=== PATIENT | female | born 1965 | race Caucasian/White ===

== ENCOUNTER → 2021-12-02 | Outpatient (CLI) | payer BC, OTHER ==
[~2021-12-02] MED LIST: AJOVY; CYMBALTA60 MG PO; HYDRALAZINE HCL50 MG PO; LATANOPROST; LEVOTHYROXINE88 MC1 PO; LYRICA150 MG PO; METOPROLOL; NEXIUM40 MG PO; PROVENTIL; TRESIBA; TRULICITY4.5 MG/0.5 SQ
[2021-12-02 11:49] LABS: HEMOGLOBIN 14.3 gm/dl (12.3-15.3); RED BLOOD COUNT 5.04 M/UL (4.00-5.10); WHITE BLOOD COUNT 9.8 K/UL (4.5-11.0)
[2021-12-02 12:06] LABS: BUN/CREATININE RATIO 12 (0-10)
== END ==
LOC: OPSV2 10:00 → EDSTATUS 10:00 → OPSV2 10:17
PROVIDERS: Orthopaedic Surgery
DX: Z01.818 Encounter for other preprocedural examination (principal); M17.11 Unilateral primary osteoarthritis, right knee; R94.31 Abnormal electrocardiogram [ECG] [EKG]; I44.4 Left anterior fascicular block
CPT/HCPCS: 36415; 80048; 83036; 85025; 93005

== ENCOUNTER → 2022-06-21 | Outpatient (CLI) | payer MEDICARE, OTHER ==
[~2022-06-21] MED LIST changes: -AJOVY; +AJOVY SQ; +CRESTOR40 MG PO; +FARXIGA5 MG PO; +INDOMETHACIN25 MG PO; +KLONOPIN0.5 MG PO; +LAMOTRIGINE150 MG PO; -LATANOPROST; +LATANOPROST EYEBOTH; +LATUDA80 MG PO; +METHOCARBAMOL500 MG PO; +METOPROLOL SUCC25 MG PO; +PROVENTIL HFA6.7 GM INH; +[UNRECOGNIZED DRUG - OTHER] SQ
[2022-06-21 10:27] LABS: HEMOGLOBIN 14.5 gm/dl (12.3-15.3); RED BLOOD COUNT 5.22 M/UL (4.00-5.10); WHITE BLOOD COUNT 8.9 K/UL (4.5-11.0)
[2022-06-21 10:47] LABS: BUN/CREATININE RATIO 26 (0-10)
== END ==
LOC: EDSTATUS 08:00 → OPSV2 08:00
PROVIDERS: Orthopaedic Surgery
DX: Z01.818 Encounter for other preprocedural examination (principal); M17.11 Unilateral primary osteoarthritis, right knee; Z88.5 Allergy status to narcotic agent; Z88.0 Allergy status to penicillin; R94.31 Abnormal electrocardiogram [ECG] [EKG]; R00.1 Bradycardia, unspecified; I44.4 Left anterior fascicular block
CPT/HCPCS: 80048; 85027; 93005

== ENCOUNTER → 2022-07-12 | Day surgery (SDC) | payer MEDICARE, OTHER ==
[~2022-07-12] VITALS: Ht 175.3 cm; Wt 115.2 kg
[2022-07-12 09:40] LABS: BUN/CREATININE RATIO 18 (0-10)
== END | disposition home or self-care (01) ==
LOC: OR 07:30
PROVIDERS: Orthopaedic Surgery
DX: M17.11 Unilateral primary osteoarthritis, right knee (principal); E11.36 Type 2 diabetes mellitus with diabetic cataract; H26.9 Unspecified cataract; Z88.5 Allergy status to narcotic agent; Z88.0 Allergy status to penicillin; Z91.030 Bee allergy status; Z53.9 Procedure and treatment not carried out, unspecified reason
CPT/HCPCS: 80048; 86850; 86900; 86901